=== PATIENT | male | born 1985 | race Caucasian/White ===

== ENCOUNTER 2016-10-03 10:39 | Emergency (ER) | payer OTHER, BC ==
[2016-10-03 10:48] VITALS: BP 159/86
--- NOTE | 2016-10-04 10:40 | CR ---
INDICATION: Fall, FOOSH, thenar eminence trauma, pain mostly at base of thumb. LEFT HAND: Three views of the left hand were obtained and revealed the ulnar styloid to have an appearance compatible with either ununited fracture site or ununited accessory ossification center. There is slight prominence at the volar fat pad at the wrist, suggesting a wrist joint effusion. This should be correlated clinically. No evidence of an acute fracture, dislocation, or other significant bone or joint abnormality was identified. MTDD
--- NOTE | 2016-10-17 02:14 | ER ---
DATE SEEN: 10/03/2016 CHIEF COMPLAINT: Injury occurred while working at [employer]. Last night, on 10/02/2016, the patient fell through a hole on he floor onto a grid below and he had trauma to his left index finger, left wrist, left thenar eminence, and left thumb. ALLERGIES: Penicillin. SERIOUS ILLNESSES: None. No diabetes, heart disease, high blood pressure, or other serious illnesses. No previous other serious illnesses. Tetanus is up-to- date. REVIEW OF SYSTEMS: Negative. PHYSICAL EXAMINATION: VITAL SIGNS: Temperature is 97 degrees centigrade, pulse 78, respirations 16, blood pressure 156/86, heart rate 78, and oxygen saturation 100%. GENERAL: Pleasant gentleman, in mild distress. HEENT: PERRLA intact. Pharynx without abnormality. NECK: Supple. No thyromegaly or masses. NECK: No neck tenderness of cervical, thoracic, and cervical paraspinal muscles or spinous processes. No evidence for ecchymosis or trauma. The patient's head is atraumatic. LUNGS: Clear to auscultation without rales, rhonchi, or wheezes. No chest wall discomfort. HEART: S1 and S2. No irregular rate or rhythm. ABDOMEN: Soft. No guarding. No hepatosplenomegaly. EXTREMITIES: Without abnormality except for the left upper extremity which he explains FOOSH. Left index finger pain. Left volar wrist discomfort, thenar evidence has abrasion with contusion. There is ecchymosis and abrasion to the left proximal index finger, left volar wrist thenar eminence of the hand, left thumb IP joint and proximal phalanges. Examination of the wrist demonstrated mild tenderness of the radiocarpal joint. Extension and flexion were intact. Range of motion of the fingers was appropriate and normal. No subluxation or dislocation and sensation is intact. Cap refill is good. X-rays of the wrist did not reveal any abnormalities. ER COURSE: The patient had the abrasion cleansed vigorously and carefully with a sponge and surgical sponge and also all debris was removed from the dermis. Bacitracin applied. Bandage was applied. PLAN: The patient will return to work, gradual progressive increase in activity as tolerated. Follow up with doctor next week. DIAGNOSES: 1. Left wrist radiocarpal joint contusion sprain. 2. Left hand thenar eminence contusion with ecchymosis and swelling. 3. Left phalanges thenar eminence, thumb and proximal phalanges of the thumb abrasions. PLAN: 1. Tetanus is up-to-date. 2. No antibiotics provided. /[id number] ZOË/LUCI
== END 2016-10-03 11:40 | disposition home or self-care (01) ==
LOC: FB.ED 10:39
DX: S60.212A Contusion of left wrist, initial encounter (principal); S60.222A Contusion of left hand, initial encounter; S60.411A Abrasion of left index finger, initial encounter; S60.312A Abrasion of left thumb, initial encounter; W17.89XA Other fall from one level to another, initial encounter; Y92.63 Factory as the place of occurrence of the external cause; Y99.0 Civilian activity done for income or pay; Z88.0 Allergy status to penicillin
CPT/HCPCS: 73130-LT; 99000; 99283